=== PATIENT | female | born 2000 | race Caucasian/White ===

== ENCOUNTER 2020-09-21 19:31 | Emergency (ER) | payer OTHER ==
--- NOTE | 2020-09-21 20:15 | NUR ---
CALLED PT TO BE TRIAGED. NO RESPONSE
--- NOTE | 2020-09-21 20:37 | NUR ---
CALLED PATIENT TO BE TRAIGED, NO RESPONSE
--- NOTE | 2020-09-21 20:45 | NUR ---
CALLED PATIENT TO BE TRIAGED, NO ANSWER
== END 2020-09-21 20:46 | disposition left against medical advice (07) ==
LOC: ER 19:31
DX: Z53.21 Procedure and treatment not carried out due to patient leaving prior to being seen by health care provider (principal)